=== PATIENT | female | born 2005 | race Caucasian/White ===

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

== ENCOUNTER → 2023-08-17 14:44 | Outpatient (CLI) | payer OTHER, MEDICAID, SELFPAY ==
--- NOTE | 2023-08-17 14:45 | DI.US.S_ITS ---
PROCEDURE: US PELVIC COMPLETE INDICATIONS: IUD TECHNIQUE: Real-time scanning was performed of the pelvic organs, with image documentation. Additional endovaginal scanning was necessary due to incomplete visualization of the adnexal and endometrial structures by transabdominal scanning. COMPARISON: [facility], US, US PELVIC COMPLETE, 03/02/2021, 14:48. FINDINGS: Uterus: Uterus is anteverted and normal in size at 6.8 x 3.1 x 4.4 cm. The myometrium is heterogeneous. The endometrium measures 4 millimeters mm combined thickness. Intrauterine device in appropriate position. There is a mid posterior subserosal fibroid measuring 7 millimeters. Ovaries: The right ovary measures 3.0 x 1.6 x 2.1 cm, with a calculated ovarian volume of 5.4 cc. The left ovary measures 3.3 x 1.9 x 2.4 cm, with a calculated ovarian volume of 8.0 cc. Greater than 12 follicles can be seen in each ovary. No adnexal masses are seen. Other: No pathologic free abdominal or pelvic fluid. IMPRESSION: 1. Intrauterine device in appropriate position. 2. Greater than 12 sub-5 mm follicular cysts bilaterally which can be associated with polycystic ovarian morphology. 3. Mid posterior subserosal fibroid measuring 7 millimeters. We strive to produce accurate, complete, and clear reports of imaging services. To assist us in improving patient care, this report was composed using standard report templates and voice recognition software. Therefore, it may contain abnormal punctuation, insertions and/or omissions. Occasional wrong-word or sound-alike substitutions may occur. Though we review the report and make efforts to correct it, we do recommend that the report be read carefully in proper context to recognize any text inaccuracies. Dictated by: Son Moore M.D. on 08/18/2023 at 9:13 Approved by: Son Moore M.D. on 08/18/2023 at 9:15
== END ==
PROVIDERS: Family Provider Family Medicine; PCP Family Medicine; Referring Provider Obstetrics & Gynecology; Visit Provider Obstetrics & Gynecology
DX: N92.0 Excessive and frequent menstruation with regular cycle (principal); D25.2 Subserosal leiomyoma of uterus; N83.02 Follicular cyst of left ovary; N83.01 Follicular cyst of right ovary; Z97.5 Presence of (intrauterine) contraceptive device
CPT/HCPCS: 76830; 76856

== ENCOUNTER → 2023-08-18 17:25 | Outpatient (CLI) | payer OTHER, MEDICAID, SELFPAY ==
[2023-08-18 18:00] LABS: Add Manual Diff / Slide Review NO; Basophils Absolute Auto 100 /uL (0-100); Eosinophils Absolute Auto 200 /uL (0-450); Eosinophils Percent Auto 2.2 % (2-4); Hemoglobin 13.7 g/dL (12.0-16.0); Lymphocytes Absolute Auto 3500 /uL (1100-4500); Lymphocytes Percent Auto 32.6 % (25-40); Mean Corpuscular HGB Conc 34.2 % (30-36); Mean Corpuscular Hemoglobin 29.6 PG (26-34); Mean Corpuscular Volume 86.5 fL (80-100); Monocytes Absolute Auto 600 /uL (0-900); Monocytes Percent Auto 5.8 % (3-14); Neutrophils Absolute Auto 6200 /uL (1500-7000); Neutrophils Percent Auto 58.4 % (50-75); Platelet Count 352 X10^3/uL (150-400); Red Blood Cell Count 4.62 X10^6/uL (4.0-5.2); Red Cell Distribution Width 12.9 % (11.6-14.8); White Blood Cell Count 10.6 X10^3/uL (4.5-11.0)
[2023-08-18 18:30] LABS: Free T4, Direct Thyroxine 0.94 ng/dL (0.78-2.19)
[2023-08-18 18:43] LABS: Thyroid Stimulating Hormone 1.18 uIU/mL (0.47-4.68)
== END ==
PROVIDERS: Family Provider Family Medicine; PCP Family Medicine; Referring Provider Obstetrics & Gynecology; Visit Provider Obstetrics & Gynecology
DX: N92.6 Irregular menstruation, unspecified (principal); R53.83 Other fatigue
CPT/HCPCS: 36415; 84439; 84443; 85025

== ENCOUNTER → 2024-02-09 07:12 | Outpatient (CLI) | payer OTHER, MEDICAID, SELFPAY ==
--- NOTE | 2024-02-09 07:13 | DI.US.S_ITS ---
PROCEDURE: US PELVIC COMPLETE INDICATIONS: Check IUD placement/Poss PCOS TECHNIQUE: Real-time scanning was performed of the pelvic organs, with image documentation. Additional endovaginal scanning was necessary due to incomplete visualization of the adnexal and endometrial structures by transabdominal scanning. COMPARISON: [facility], US, US PELVIC COMPLETE, 08/17/2023, 15:09. FINDINGS: Uterus: Uterus is anteverted and normal in size at 5.9 x 3.5 x 3.9 cm. The myometrium is homogeneous. The endometrium measures 3 mm combined thickness. An IUD is present within the uterine fundus where expected. Ovaries: The right ovary measures 3.0 x 1.6 x 2.3 cm, with a calculated ovarian volume of 3.4 cc. The left ovary measures 4.0 x 2.1 x 2.4 cm, with a calculated ovarian volume of 3.8 cc. The ovaries have a normal sonographic appearance. There are greater than 12 follicles in the bilateral ovaries. No adnexal masses are seen. Other: No pathologic free abdominal or pelvic fluid. IMPRESSION: 1. Findings meet the [place] definition of polycystic ovaries. In the absence of ovulatory dysfunction or clinically/biochemically diagnosed hyperandrogenism, findings are non specific and do not indicate the presence of polycystic ovarian syndrome. 2. IUD in expected location in uterine fundus. We strive to produce accurate, complete, and clear reports of imaging services. To assist us in improving patient care, this report was composed using standard report templates and voice recognition software. Therefore, it may contain abnormal punctuation, insertions and/or omissions. Occasional wrong-word or sound-alike substitutions may occur. Though we review the report and make efforts to correct it, we do recommend that the report be read carefully in proper context to recognize any text inaccuracies. Dictated by: Adia Alberts M.D. on 02/09/2024 at 8:13 Approved by: Adia Alberts M.D. on 02/09/2024 at 8:23
== END ==
LOC: US 07:13
PROVIDERS: Family Provider Family Medicine; PCP Family Medicine; Referring Provider Obstetrics & Gynecology; Visit Provider Obstetrics & Gynecology
DX: N92.6 Irregular menstruation, unspecified (principal); Z97.5 Presence of (intrauterine) contraceptive device
CPT/HCPCS: 76856

== ENCOUNTER → 2024-03-01 14:19 | Outpatient (CLI) | payer OTHER, MEDICAID, SELFPAY ==
[2024-03-01 15:40] LABS: Add Manual Diff / Slide Review NO; Basophils Absolute Auto 100 /uL (0-100); Basophils Percent Auto 0.8 % (0-2); Eosinophils Absolute Auto 100 /uL (0-450); Eosinophils Percent Auto 1.5 % (2-4); Hematocrit 36.2 % (36-46); Hemoglobin 12.6 g/dL (12.0-16.0); Lymphocytes Absolute Auto 3000 /uL (1100-4500); Lymphocytes Percent Auto 31.9 % (25-40); Mean Corpuscular HGB Conc 34.8 % (30-36); Mean Corpuscular Hemoglobin 30.2 PG (26-34); Mean Corpuscular Volume 86.8 fL (80-100); Monocytes Absolute Auto 800 /uL (0-900); Monocytes Percent Auto 7.9 % (3-14); Neutrophils Absolute Auto 5500 /uL (1500-7000); Neutrophils Percent Auto 57.9 % (50-75); Platelet Count 314 X10^3/uL (150-400); Red Blood Cell Count 4.17 X10^6/uL (4.0-5.2); White Blood Cell Count 9.5 X10^3/uL (4.5-11.0)
[2024-03-01 16:22] LABS: Iron 70 ug/dL (37-170)
[2024-03-01 16:26] LABS: Alanine Aminotransferase 20 IU/L (<35); Albumin 4.4 g/dL (3.5-5.0); Albumin Globulin Ratio 1.5 (1.0-2.8); Alkaline Phosphatase 68 U/L (38-126); Aspartate Aminotransferase 30 IU/L (14-36); BUN Creatinine Ratio 16.9 (6-22); Bilirubin Total 0.5 mg/dL (0.2-1.3); Blood Urea Nitrogen 11 mg/dL (7-17); Calcium 8.9 mg/dL (8.4-10.2); Carbon Dioxide 24 mmol/L (22-32); Chloride 107 mmol/L (98-107); Estimated Glomerular Filt Rate > 60 mL/min (>60); Glucose 86 mg/dL (70-100); HEMOLYSIS < 15 (0-50); Sodium 138 mmol/L (137-145); Total Protein 7.4 g/dL (6.3-8.2)
[2024-03-02 16:01] LABS: Hemoglobin A1C% w Est Avg Glu 5.2 % (4.0-6.0)
[2024-03-04 05:39] LABS: Insulin Level Total 13.6 uIU/mL (2.6-24.9)
[2024-03-07 09:12] LABS: Percent Free Testosterone 3.27 % (0.50-2.80); Testosterone Free 0.41 ng/dL (0.10-0.85); Testosterone Total 12.5 ng/dL (10.0-55.0)
== END ==
PROVIDERS: Family Provider Family Medicine; PCP Family Medicine; Referring Provider Family Medicine; Visit Provider Family Medicine
DX: E28.2 Polycystic ovarian syndrome (principal); R42 Dizziness and giddiness
CPT/HCPCS: 36415; 80053; 83036; 83525; 83540; 84402; 84403; 85025

== ENCOUNTER → 2024-05-04 15:09 | Outpatient (CLI) | payer OTHER, MEDICAID, SELFPAY | LOC: CAR 15:10 | PROVIDERS: Family Provider Family Medicine; PCP Family Medicine; Referring Provider Family Medicine; Visit Provider Family Medicine | DX: R42 Dizziness and giddiness (principal) | CPT/HCPCS: 93246 ==

== ENCOUNTER → 2024-07-12 18:33 | Outpatient (CLI) | payer OTHER, MEDICAID, SELFPAY | PROVIDERS: Family Provider Family Medicine; PCP Family Medicine; Visit Provider Student in an Organized Health Care Education/Training Program | DX: H66.92 Otitis media, unspecified, left ear (principal); J02.8 Acute pharyngitis due to other specified organisms | CPT/HCPCS: 87070; 87880 ==

== ENCOUNTER → 2024-07-24 18:37 | Outpatient (CLI) | payer OTHER, MEDICAID, SELFPAY | PROVIDERS: Family Provider Family Medicine; PCP Family Medicine; Visit Provider Nurse Practitioner Family | DX: J02.9 Acute pharyngitis, unspecified (principal) | CPT/HCPCS: 87070; 87880 ==

== ENCOUNTER → 2024-09-01 08:38 | Outpatient (CLI) | payer OTHER, SELFPAY ==
[2024-09-01 09:28] LABS: Influenza A - CEPHEID Flu A NEGATIVE (NEGATIVE); Influenza B - CEPHEID Flu B NEGATIVE (NEGATIVE); Respiratory Syncytial Virus Negative (Negative)
[2024-09-01 09:42] LABS: COVID-19 CEPHEID 4-PLEX PCR Negative (Negative)
== END ==
PROVIDERS: Family Provider Family Medicine; PCP Family Medicine; Referring Provider Nurse Practitioner Family; Visit Provider Nurse Practitioner Family
DX: R50.9 Fever, unspecified (principal); J02.9 Acute pharyngitis, unspecified
CPT/HCPCS: 87635; 87400; 87420; 0241U; 87070

== ENCOUNTER 2024-09-03 11:44 | Emergency (ER) | payer OTHER, SELFPAY ==
[2024-09-03] VITALS (12 sets, daily range): BP systolic 112–135; BP diastolic 66–80; PULSE 88–125; RESP 18–20; TEMP 36.9–37.7; O2SAT 97–99; BMI 36.9
--- NOTE | 2024-09-03 12:10 | DI.RAD.S_ITS ---
PROCEDURE: XR CHEST 2V INDICATIONS: fever, congested cough since 09 01 24 TECHNIQUE: 2 views of the chest were acquired. COMPARISON: [facility], CR, XR CHEST 2V, 12/18/2022, 12:42. FINDINGS: Surgical changes and devices: None. Lungs and pleura: Lungs are clear. No pleural effusions or pneumothorax. Mediastinum: Mediastinal contours are normal. Heart size is normal. Bones and chest wall: No suspicious bony abnormalities. Soft tissues appear unremarkable. IMPRESSION: No acute pulmonary process. Dictated by: Zayda Devries M.D. on 09/03/2024 at 13:12 Approved by: Zayda Devries M.D. on 09/03/2024 at 13:12
[2024-09-03 12:42] LABS: Add Manual Diff / Slide Review NO; Basophils Absolute Auto 100 /uL (0-100); Basophils Percent Auto 0.7 % (0-2); Eosinophils Absolute Auto 100 /uL (0-450); Eosinophils Percent Auto 0.6 % (2-4); Hematocrit 39.2 % (36-46); Hemoglobin 13.1 g/dL (12.0-16.0); Lymphocytes Absolute Auto 2000 /uL (1100-4500); Lymphocytes Percent Auto 17.2 % (25-40); Mean Corpuscular HGB Conc 33.3 % (30-36); Mean Corpuscular Hemoglobin 29.1 PG (26-34); Mean Corpuscular Volume 87.4 fL (80-100); Monocytes Absolute Auto 1400 /uL (0-900); Monocytes Percent Auto 11.4 % (3-14); Neutrophils Absolute Auto 8300 /uL (1500-7000); Neutrophils Percent Auto 70.1 % (50-75); Platelet Count 270 X10^3/uL (150-400); Red Blood Cell Count 4.49 X10^6/uL (4.0-5.2); Red Cell Distribution Width 13.4 % (11.6-14.8); White Blood Cell Count 11.9 X10^3/uL (4.5-11.0)
--- NOTE | 2024-09-03 12:50 | ED.GENADULT ---
HPI - General Adult General Chief complaint: Fever Stated complaint: fever 4 days not breaking Time Seen by Provider: 09/03/24 12:20 Source: patient Mode of arrival: Ambulatory History of Present Illness HPI narrative: [age] year old woman with fever to 104 for the last 4 days. On day 2 of symptoms she was seen at urgent care with COVID influenza and RSV swabs as well as rapid strep negative. She notes myalgias, mild frontal headache, sleeping for most of the previous 3 days which is very unusual for her, minimal cough, posterior and anterior cervical adenopathy causing neck pain without acute meningismus signs. She states she had a similar episode about 2 months ago with a high fever that was treated with 2 courses of antibiotics but no actual bacterial diagnosis was fully identified. She has not been having vomiting or diarrhea but notes some mild nausea. Has been able to keep down small amounts of fluids and solids. No one else at home is sick Related Data Home Medications Medication Instructions Recorded Confirmed multivitamin 1 tab PO DAILY 07/03/21 09/01/24 Previous Rx's Medication Instructions Recorded cetirizine 10 mg tablet (Allergy 10 mg PO BEDTIME PRN allergy 12/17/22 Relief (cetirizine)) symptoms #30 tabs norethindrone 0.5 mg-ethinyl 1 tab PO DAILY #84 tabs 12/17/22 estradiol 35 mcg tablet (Necon) metformin 500 mg tablet 1,000 mg (2 x 500 mg) PO BID #180 04/17/24 tabs Glucose Meter #1 ea 05/09/24 Glucose Test Strips #100 strips 05/09/24 lancets #100 ea 05/09/24 benzonatate 200 mg capsule 200 mg PO BID PRN cough #28 caps 07/24/24 Allergies Allergy/AdvReac Type Severity Reaction Status Date / Time No Known Drug Allergies Allergy Verified 09/01/24 08:36 Review of Systems Review of Systems Narrative: Pertinent positive and negative findings as per HPI Patient History Medical History Attention deficit hyperactivity disorder (ADHD), predominantly 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) Gastroesophageal reflux disease Anxiety Family History Grandmother Thyroid disorder Mother Panic attacks Methamphetamine abuse Social History household members: family Smoking Status: Current some day smoker alcohol intake: never Smoking Status: Current some day smoker tobacco type: vaping alcohol intake frequency: 0-2 drinks per day Exam Initial Vital Signs Initial Vital Signs: Vital Signs Temperature 100 F H 09/03/24 11:52 Pulse Rate 125 H 09/03/24 11:52 Respiratory Rate 18 09/03/24 11:52 Blood Pressure 115/78 09/03/24 11:52 Pulse Oximetry 97 09/03/24 11:52 Oxygen Delivery Method Room Air 09/03/24 11:52 General: Healthy appearing, in no acute distress. Able to give a complete and coherent history. Well-nourished well-developed HEENT: Moist mucous membranes, normal sclera with reactive pupils, throat is mildly erythematous. Right tonsil has some mild exudate slightly more full than the left (patient complains of most pain on the left) Neck: Notable anterior and posterior cervical adenopathy tender to palpation. No single node is particularly enlarged Respiratory: Lungs are clear to auscultation, no wheezing no rales no rhonchi. Full and symmetrical air movement Cardiac: Tachycardic but otherwise Regular rate and rhythm no murmurs no bruits Abdomen: Soft, nontender, good bowel tones, no flank pain Skin: Warm and dry, no rashes Neurologic: Grossly neurologically intact with no obvious asymmetries or abnormalities Extremities: No trauma, well perfused Psych: Cooperative, appropriate insight and affect Course Orders Ordered: ED Orders 09/03/24 12:10 XR chest 2V Stat 09/03/24 12:30 Complete Blood Count AUTO DIFF Stat Comprehensive Metabolic Panel Stat Lactate (Lactic Acid) Stat Magnesium Stat 09/03/24 12:58 Throat Culture Stat 09/03/24 13:38 Strep Grp A by PCR Rapid Stat Discontinued Medications Sodium Chloride (Normal Saline 0.9%) 1,000 mls @ 1,000 mls/hr IV BOLUS ONE Stop: 09/03/24 13:48 Last Infusion: 09/03/24 14:27 Dose: Infused Documented By: Admin: 09/03/24 13:05 Dose: 1,000 mls/hr Documented By: ROSLYN Ketorolac Tromethamine (Ketorolac 30 Mg/Ml Vial) 15 mg IV NOW ONE Stop: 09/03/24 12:50 Last Admin: 09/03/24 13:04 Dose: 15 mg Documented By: ROSLYN Vital Signs Vital signs: Vital Signs - 8 hr 09/03/24 11:52 09/03/24 12:53 09/03/24 13:04 Temperature 100 F H 98.6 F 98.6 F Pulse Rate 125 H 113 H Respiratory Rate 18 18 Blood Pressure 115/78 135/68 Pulse Oximetry 97 99 Oxygen Delivery Method Room Air Room Air 09/03/24 13:09 09/03/24 13:11 09/03/24 13:30 Temperature Pulse Rate 112 H 112 H 105 H Respiratory Rate 20 Blood Pressure 130/79 Pulse Oximetry 98 99 99 Oxygen Delivery Method Room Air 09/03/24 13:30 09/03/24 14:00 09/03/24 14:00 Temperature Pulse Rate 107 H Respiratory Rate Blood Pressure 126/66 125/73 Pulse Oximetry 97 Oxygen Delivery Method 09/03/24 14:24 09/03/24 14:24 09/03/24 14:30 Temperature 98.5 F Pulse Rate 105 H Respiratory Rate Blood Pressure 122/76 123/73 Pulse Oximetry 97 Oxygen Delivery Method 09/03/24 14:30 09/03/24 15:00 09/03/24 15:00 Temperature Pulse Rate 99 H 94 H Respiratory Rate Blood Pressure 112/66 Pulse Oximetry 98 97 Oxygen Delivery Method 09/03/24 15:30 09/03/24 15:30 Temperature Pulse Rate 99 H Respiratory Rate Blood Pressure 118/76 Pulse Oximetry 98 Oxygen Delivery Method Medical Decision Making Lab Data 09/03/24 12:30 09/03/24 12:30 Labs: Lab Results 09/03/24 09/03/24 Range/Units 12:30 13:38 WBC 11.9 H (4.5-11.0) X10^3/uL RBC 4.49 (4.0-5.2) X10^6/uL Hgb 13.1 (12.0-16.0) g/dL Hct 39.2 (36-46) % MCV 87.4 (80-100) fL MCH 29.1 (26-34) PG MCHC 33.3 (30-36) % RDW 13.4 (11.6-14.8) % Plt Count 270 (150-400) X10^3/uL Neut % (Auto) 70.1 (50-75) % Lymph % (Auto) 17.2 L (25-40) % [place] % (Auto) 11.4 (3-14) % Eos % (Auto) 0.6 L (2-4) % Baso % (Auto) 0.7 (0-2) % Neut # (Auto) 8300 H (2291-1165) /uL Lymph # (Auto) 2000 (9335-0621) /uL [place] # (Auto) 1400 H (0-900) /uL Eos # (Auto) 100 (0-450) /uL Baso # (Auto) 100 (0-100) /uL Sodium 138 (137-145) mmol/L Potassium 4.1 (3.4-5.1) mmol/L Chloride 102 (98-107) mmol/L Carbon Dioxide 27 (22-32) mmol/L BUN 9 (7-17) mg/dL Creatinine 0.59 (0.52-1.04) mg/dL Estimated GFR > 60 (>60) mL/min BUN/Creatinine Ratio 15.3 (6-22) Glucose 109 H (70-100) mg/dL Lactate 1.6 (0.7-2.1) mmol/L Calcium 9.1 (8.4-10.2) mg/dL Magnesium 2.0 (1.6-2.3) mg/dL Total Bilirubin 0.6 (0.2-1.3) mg/dL AST 46 H (14-36) IU/L ALT 36 H (<35) IU/L Alkaline Phosphatase 72 (38-126) U/L Total Protein 8.2 (6.3-8.2) g/dL Albumin 4.7 (3.5-5.0) g/dL Globulin 3.5 (1.7-4.1) g/dL Albumin/Globulin Ratio 1.3 (1.0-2.8) Group A Strep (PCR) Negative (Negative) Point of Care Testing Test Results Negative Urine Dip Bedside Urine Glucose Negative Bedside Urine Bilirubin - Negative Bedside Urine Ketone - Negative Urine Specific [place] 1.010 Bedside Urine Occult Blood - Negative Bedside Urine pH 7.0 Bedside Urine Protein - Negative Bedside Urine Urobilinogen - Negative Bedside Urine Nitrite - Negative Bedside Urine Leukocytes - Negative Esterase Point of care testing: Point of Care Testing Test Results Negative Urine Dip Bedside Urine Glucose Negative Bedside Urine Bilirubin - Negative Bedside Urine Ketone - Negative Urine Specific [place] 1.010 Bedside Urine Occult Blood - Negative Bedside Urine pH 7.0 Bedside Urine Protein - Negative Bedside Urine Urobilinogen - Negative Bedside Urine Nitrite - Negative Bedside Urine Leukocytes - Negative Esterase MDM Narrative Medical decision making narrative: CC: Fever to 104 Complicating co-morbidities: Symptoms present for 4 days, similar episode 2 months ago Data collected from: patient Medical records reviewed: Throat cultures done on July 12, 2012 and September 01 are all negative Differential considered: Viral syndrome, bacterial pharyngitis, pneumonia, mononucleosis, doubt meningitis Exam documented above, pertinent findings include: Cervical adenopathy, lungs are clear, no meningismus. Slightly erythematous pharynx Lab Test results independently reviewed as above. Pertinent findings: Mild leukocytosis at 11.9 without significant left shift Chemistries are essentially unremarkable. Minimally elevated AST and ALT at 46 and 36 respectively Lactic acid is not elevated Tests for COVID, influenza, RSV, group step are all negative Imaging studies independently reviewed: Chest x-ray does not show acute infiltrate Treatments: Fluids, Toradol, iv dexamethasone Discussion: 19-year-old woman with 4 days of fever to 104 and general body aches. Sore throat. Influence RSV and COVID are negative no evidence of strep throat is not appear to be mono no pneumonia no urinary tract infection. At this time most likely explanation remains viral etiology. This is discussed with the patient. The Toradol did help with the overall myalgias and headache but is now beginning to wear off. We will give her a dose of IV dexamethasone to help with the pharyngitis pain. Recommended not returning to work until at least the and her fever has essentially resolved. If she is worsening symptoms she needs to return to the ER. There was no indication for hospitalization or additional imaging at this time she is safe for discharge Discharge Plan Departure Patient Disposition: Home Clinical Impression: Acute febrile illness Instructions: DI for Fever (Symptom) -- Adult Activity Restrictions/Additional Instructions: Thank you For coming in today Your workup was actually quite reassuring. There is no evidence of influenza, COVID, respiratory syncytial virus, strep throat. A throat culture has been done so if bacteria do grow we will call you. Prescriptions: No Action Necon 0.5/35 (28) 0.5-35 mg-mcg tablet 1 tab PO DAILY Qty: 84 3RF cetirizine [Allergy Relief (cetirizine)] 10 mg tablet 10 mg PO BEDTIME PRN (Reason: allergy symptoms) Qty: 30 3RF (DME) Glucose Test Strips See Rx Instructions .ROUTE .MEDSUPPLY Qty: 100 0RF Rx Instructions: to test glucose daily As directed as needed for hypoglycemic episodes benzonatate 200 mg capsule 200 mg PO BID PRN (Reason: cough) Qty: 28 0RF metformin 500 mg tablet 1,000 mg PO BID Qty: 180 0RF (DME) lancets Misc See Rx Instructions .MEDSUPPLY Qty: 100 0RF Rx Instructions: to test blood glucose daily As directed as needed (DME) Glucose Meter See Rx Instructions .ROUTE .MEDSUPPLY Qty: 1 0RF Rx Instructions: to test blood glucose daily As directed as needed multivitamin Tablet 1 tab PO DAILY Referrals: Grace Lyle MD [Primary Care Provider] - Stand Alone Forms: Patient Portal/API/Survey
[2024-09-03 13:03] LABS: Alanine Aminotransferase 36 IU/L (<35); Albumin 4.7 g/dL (3.5-5.0); Albumin Globulin Ratio 1.3 (1.0-2.8); Alkaline Phosphatase 72 U/L (38-126); Aspartate Aminotransferase 46 IU/L (14-36); BUN Creatinine Ratio 15.3 (6-22); Bilirubin Total 0.6 mg/dL (0.2-1.3); Blood Urea Nitrogen 9 mg/dL (7-17); Calcium 9.1 mg/dL (8.4-10.2); Carbon Dioxide 27 mmol/L (22-32); Chloride 102 mmol/L (98-107); Estimated Glomerular Filt Rate > 60 mL/min (>60); Globulin 3.5 g/dL (1.7-4.1); Glucose 109 mg/dL (70-100); HEMOLYSIS < 15 (0-50); Potassium 4.1 mmol/L (3.4-5.1); Sodium 138 mmol/L (137-145); Total Protein 8.2 g/dL (6.3-8.2)
[2024-09-03 13:04] LABS: Lactate (Lactic Acid) 1.6 mmol/L (0.7-2.1)
[2024-09-03] MEDS: KETOROLAC 30 MG/ML VIAL 15 MG IV (13:04)
[2024-09-03] MEDS: SODIUM CHLORIDE 0.9% 1,000 ML 1000 ML IV (13:05)
[2024-09-03 14:05] LABS: Strep Grp A by PCR Rapid Negative (Negative)
--- NOTE | 2024-09-03 14:29 | PC.NURSE ---
patient reports significant improvement in throat pain after the Ketorlac. Does continue to have manageable headache
--- NOTE | 2024-09-03 15:56 | PC.NURSE ---
patient ambulated to [facility]. report headache is increasing. i would take excedrine migraine if I were at home
[2024-09-03] MEDS: DEXAMETHASONE 10 MG/ML VIAL PO (17:16)
== END 2024-09-03 17:18 | disposition home or self-care (01) ==
PROVIDERS: Emergency Provider Emergency Medicine; Family Provider Family Medicine; PCP Family Medicine
DX: R50.9 Fever, unspecified (principal)
CPT/HCPCS: 36415; 71046; 80053; 81003; 81025; 83605; 83735; 85025; 87070; 87651; 96361; 96374; 99284; J1100; J1885

== ENCOUNTER → 2024-11-09 15:20 | Outpatient (CLI) | payer MEDICAID, SELFPAY ==
[2024-11-09 16:54] LABS: Vitamin D 25 Hydroxy (D3) 26.8 ng/mL (30.0-100.0)
[2024-11-09 17:25] LABS: Vitamin B12 533 pg/mL (239-931)
== END ==
LOC: LAB 15:21
PROVIDERS: Family Provider Family Medicine; PCP Family Medicine; Referring Provider Family Medicine; Visit Provider Family Medicine
DX: E55.9 Vitamin D deficiency, unspecified (principal); R53.83 Other fatigue
CPT/HCPCS: 36415; 82306; 82607

== ENCOUNTER 2024-12-17 18:53 | Emergency (ER) | payer OTHER, MEDICAID, SELFPAY ==
[2024-12-17 19:10] VITALS: BP 137/95; PULSE 97; RESP 18; TEMP 36.7; O2SAT 99; BMI 34.9
--- NOTE | 2024-12-17 19:18 | DI.RAD.S_ITS ---
PROCEDURE: XR HIP W PEL IF DONE DEN MIN 4V INDICATIONS: bilateral hip pain TECHNIQUE: AP pelvis with lateral view(s) of the bilateral hip(s). COMPARISON: None. FINDINGS: Bones: No fractures or dislocations. Pelvic ring appears intact. No suspicious bony lesions. Soft tissues: The visualized bowel gas pattern is normal. No suspicious soft tissue calcifications. Intrauterine device projecting over the pelvis. IMPRESSION: No acute osseous abnormality. If pain persists with conservative management, consider repeat x-ray in 10-14 days or cross-sectional imaging. Dictated by: Son Moore M.D. on 12/17/2024 at 19:46 Approved by: Son Moore M.D. on 12/17/2024 at 19:47
--- NOTE | 2024-12-17 19:18 | DI.RAD.S_ITS ---
PROCEDURE: XR LUMBAR SPINE 2-3V INDICATIONS: low back/pelvis pain TECHNIQUE: 3 views of the lumbar spine were acquired. COMPARISON: None. FINDINGS: Bones: 5 [id number] vertebrae are present. Straightening of the normal lumbar lordosis. No vertebral body compression fractures. Mild disc height loss at L5-S1. No suspicious bony lesions. Soft tissues: Overlying bowel gas pattern is normal. No suspicious soft tissue calcifications. Intrauterine device projecting over the pelvis. IMPRESSION: 1. Mild disc height loss at L5-S1. Otherwise, no significant degenerative changes. No acute osseous abnormalities. 2. Loss of lordosis which could be related to muscle spasm, rigidity or simply positional. Dictated by: Son Moore M.D. on 12/17/2024 at 19:50 Approved by: Son Moore M.D. on 12/17/2024 at 19:51
--- NOTE | 2024-12-17 23:26 | ED.BACK ---
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 Also has some discomfort to both hips. No change in footwear. No fevers or chills. No abdominal discomfort. No diarrhea nausea or vomiting. No fevers or chills. No painful or frequent urination. Related Data Home Medications Medication Instructions Recorded Confirmed multivitamin 1 tab PO DAILY 07/03/21 11/20/24 Previous Rx's Medication Instructions Recorded cetirizine 10 mg tablet (Allergy 10 mg PO BEDTIME PRN allergy 12/17/22 Relief (cetirizine)) symptoms #30 tabs metformin 500 mg tablet 1,000 mg (2 x 500 mg) PO BID #180 04/17/24 tabs Glucose Meter #1 ea 05/09/24 Glucose Test Strips #100 strips 05/09/24 lancets #100 ea 05/09/24 promethazine 12.5 mg tablet 12.5 mg PO QID PRN nausea and 11/20/24 vomiting #30 tabs sumatriptan succinate 25 mg tablet 25 mg PO .COMPLEX #10 tabs 11/20/24 methocarbamol 500 mg tablet 500 mg PO TID 7 days #21 tabs 12/18/24 Allergies Allergy/AdvReac Type Severity Reaction Status Date / Time No Known Drug Allergies Allergy Verified 11/29/24 17:09 Patient History Medical History Attention deficit hyperactivity disorder (ADHD), predominantly 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) Gastroesophageal reflux disease Anxiety Family History Grandmother Thyroid disorder Mother Panic attacks Methamphetamine abuse Social History household members: family Smoking Status: Never smoker alcohol intake: never Smoking Status: Never smoker tobacco type: vaping alcohol intake frequency: 0-2 drinks per day Exam Narrative Exam Narrative: GENERAL: Well-developed patient, in mild distress. Sitting position in adjacent chair position of comfort initially for evaluation initial exam. HEAD: Atraumatic. Normocephalic. EYES: Pupils equal round and reactive. Extraocular motions intact. No scleral icterus. No injection or drainage. ENT: Nose without bleeding, purulent drainage. Throat without erythema, tonsillar hypertrophy or exudate. Airway patent. NECK: Trachea midline. Non tender CARDIOVASCULAR: Regular rate and rhythm without murmurs, gallops, or rubs. RESPIRATORY: Clear to auscultation. Breath sounds equal bilaterally. No wheezes, rales, or rhonchi. GASTROINTESTINAL: Abdomen soft, non-tender, nondistended. EXTREMITIES: No edema or joint tenderness. BACK: Nontender without deformity or crepitance. No flank tenderness. NEURO: AOx3. Motor functions grossly nonfocal SKIN: No rash or erythema of visible areas Initial Vital Signs Initial Vital Signs: Vital Signs Temperature 98.1 F 12/17/24 19:10 Pulse Rate 97 H 12/17/24 19:10 Respiratory Rate 18 12/17/24 19:10 Blood Pressure 137/95 H 12/17/24 19:10 Pulse Oximetry 99 12/17/24 19:10 Oxygen Delivery Method Room Air 12/17/24 19:10 Course Orders Ordered: ED Orders 12/18/24 01:37 CT abdomen pelvis w con Stat 12/18/24 02:18 CBC Auto Diff [Complete Blood Count AUTO DIFF] Stat CMP [Comprehensive Metabolic Panel] Stat Lipase Stat Discontinued Medications Hydromorphone HCl (Hydromorphone 1 Mg Inj) 1 mg IM NOW ONE Stop: 12/18/24 01:40 Last Admin: 12/18/24 02:00 Dose: Not Given Documented By: KACIE Hydromorphone HCl (Hydromorphone 1 Mg Inj) 1 mg IV NOW ONE Stop: 12/18/24 02:00 Last Admin: 12/18/24 02:18 Dose: 1 mg Documented By: KACIE Ketorolac Tromethamine (Ketorolac 30 Mg/Ml Vial) 30 mg IM NOW ONE Stop: 12/17/24 23:28 Last Admin: 12/17/24 23:47 Dose: 30 mg Documented By: KACIE Methocarbamol (Methocarbamol 500 Mg Tablet) 500 mg PO NOW ONE Stop: 12/17/24 23:28 Last Admin: 12/17/24 23:47 Dose: 500 mg Documented By: LS Vital Signs Vital signs: Vital Signs - 8 hr 12/18/24 02:14 12/18/24 02:15 12/18/24 02:15 Pulse Rate 84 90 Respiratory Rate 20 20 Blood Pressure 134/60 Pulse Oximetry 100 97 Oxygen Delivery Method Room Air Room Air 12/18/24 02:30 12/18/24 02:30 12/18/24 03:00 Pulse Rate 88 82 Respiratory Rate 19 16 Blood Pressure 121/60 Pulse Oximetry 99 99 Oxygen Delivery Method Room Air Room Air MDM - Back Pain/Injury Lab Data Attestation: I reviewed the patient's lab results. Lab results narrative: White blood cell count 9800 not elevated. Hemoglobin, platelets, basic metabolic panel unremarkable. Liver functions lipase normal. 12/18/24 02:18 12/18/24 02:18 Labs: Lab Results 12/18/24 Range/Units 02:18 WBC 9.8 (4.5-11.0) X10^3/uL RBC 4.38 (4.0-5.2) X10^6/uL Hgb 13.2 (12.0-16.0) g/dL Hct 38.0 (36-46) % MCV 86.8 (80-100) fL MCH 30.0 (26-34) PG MCHC 34.6 (30-36) % RDW 13.2 (11.6-14.8) % Plt Count 327 (150-400) X10^3/uL Neut % (Auto) 51.4 (50-75) % Lymph % (Auto) 37.4 (25-40) % [place] % (Auto) 8.2 (3-14) % Eos % (Auto) 2.0 (2-4) % Baso % (Auto) 1.0 (0-2) % Neut # (Auto) 5000 (3584-0227) /uL Lymph # (Auto) 3700 (4687-3718) /uL [place] # (Auto) 800 (0-900) /uL Eos # (Auto) 200 (0-450) /uL Baso # (Auto) 100 (0-100) /uL Sodium 139 (137-145) mmol/L Potassium 3.8 (3.4-5.1) mmol/L Chloride 105 (98-107) mmol/L Carbon Dioxide 23 (22-32) mmol/L BUN 13 (7-17) mg/dL Creatinine 0.62 (0.52-1.04) mg/dL Estimated GFR > 60 (>60) mL/min BUN/Creatinine Ratio 21.0 (6-22) Glucose 123 H (70-99) mg/dL Calcium 9.0 (8.4-10.2) mg/dL Total Bilirubin 0.6 (0.2-1.3) mg/dL AST 26 (14-36) IU/L ALT 18 (<35) IU/L Alkaline Phosphatase 78 (38-126) U/L Total Protein 7.9 (6.3-8.2) g/dL Albumin 4.8 (3.5-5.0) g/dL Globulin 3.1 (1.7-4.1) g/dL Albumin/Globulin Ratio 1.5 (1.0-2.8) Lipase 124 (23-300) U/L Imaging Data Extremity x-ray #1: Radiologist's Impression: [address] [address] XRay Report Signed Patient: Kelley Simms MR#: [id number] : 2005 Acct:[id number] Age/Sex: 19 / F Date of Service: 12/17/24 Loc: ED Accession Number: [id number] Procedure: XR hip w pel if done DEN 3to4V Ordering Provider: Cuong Thornton MD PROCEDURE: XR HIP W PEL IF DONE DEN MIN 4V INDICATIONS: bilateral hip pain TECHNIQUE: AP pelvis with lateral view(s) of the bilateral hip(s). COMPARISON: None. FINDINGS: Bones: No fractures or dislocations. Pelvic ring appears intact. No suspicious bony lesions. Soft tissues: The visualized bowel gas pattern is normal. No suspicious soft tissue calcifications. Intrauterine device projecting over the pelvis. IMPRESSION: No acute osseous abnormality. If pain persists with conservative management, consider repeat x-ray in 10-14 days or cross-sectional imaging. Dictated by: Son Moore M.D. on 12/17/2024 at 19:46 Approved by: Son Moore M.D. on 12/17/2024 at 19:47 X-ray series lumbar spine: Radiologist's Impression: Close Hip X-Ray (Signed) Son Moore - 12/17/24 Lumbar Spine X-Ray (Signed) Son Moore - 12/17/24 Launch?[address] [address] XRay Report Signed Patient: Kelley Simms MR#: [id number] : 2005 Acct:[id number] Age/Sex: 19 / F Date of Service: 12/17/24 Loc: ED Accession Number: [id number] Procedure: XR lumbar spine 2-3V Ordering Provider: Cuong Thornton MD PROCEDURE: XR LUMBAR SPINE 2-3V INDICATIONS: low back/pelvis pain TECHNIQUE: 3 views of the lumbar spine were acquired. COMPARISON: None. FINDINGS: Bones: 5 [id number] vertebrae are present. Straightening of the normal lumbar lordosis. No vertebral body compression fractures. Mild disc height loss at L5-S1. No suspicious bony lesions. Soft tissues: Overlying bowel gas pattern is normal. No suspicious soft tissue calcifications. Intrauterine device projecting over the pelvis. IMPRESSION: 1. Mild disc height loss at L5-S1. Otherwise, no significant degenerative changes. No acute osseous abnormalities. 2. Loss of lordosis which could be related to muscle spasm, rigidity or simply positional. Dictated by: Son Moore M.D. on 12/17/2024 at 19:50 Approved by: Son Moore M.D. on 12/17/2024 at 19:51 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 No fevers or chills. No anterior abdominal discomfort, prefers leaning over position of comfort that relieves her low back pain. Screening x-ray lumbar spine ordered by nursing was unremarkable. We discussed advanced imaging, she would like to hold off for now. Urinalysis negative for or obvious infection. Trial of IM Toradol and oral Robaxin. Symptoms not better. We will send labs. Screening labs unremarkable. CT abdomen and pelvis ordered. CT abdomen and pelvis. Impressions: ?No evidence of colitis diverticulitis bowel obstruction obstructive uropathy or acute appendicitis. See tele radiology report. CT results relayed to patient. Follow up as an outpatient. Discharged home. Discharge Plan Departure Patient Disposition: Home Clinical Impression: Back pain, Hip pain Activity Restrictions/Additional Instructions: Back pain and hip pain. Initial screening ordered by nursing were unremarkable. Toradol and muscle relaxant given, no significant improvement in symptoms. Labs were therefore sent and also were unremarkable. CT abdomen and pelvis imaging showed no bony changes, no visceral changes to explain symptoms. No mention of any hip pathology either. Unclear cause of your symptoms, might be low musculoskeletal in nature. Trial of [id number] acetaminophen. Trial of muscle relaxant Robaxin/methocarbamol. Prescription sent to your pharmacy. Recheck if your regular doctor if not improving in the next couple of days. Prescriptions: New methocarbamol 500 mg tablet 500 mg PO TID 7 Days Qty: 21 0RF No Action cetirizine [Allergy Relief (cetirizine)] 10 mg tablet 10 mg PO BEDTIME PRN (Reason: allergy symptoms) Qty: 30 3RF sumatriptan succinate 25 mg tablet 25 mg PO .COMPLEX Qty: 10 2RF Rx Instructions: take one tab, can repeat in 2hrs if needed. Max 200mg/24hrs promethazine 12.5 mg tablet 12.5 mg PO QID PRN (Reason: nausea and vomiting) Qty: 30 2RF (DME) Glucose Test Strips See Rx Instructions .ROUTE .MEDSUPPLY Qty: 100 0RF Rx Instructions: to test glucose daily As directed as needed for hypoglycemic episodes metformin 500 mg tablet 1,000 mg PO BID Qty: 180 0RF (DME) lancets Misc See Rx Instructions .MEDSUPPLY Qty: 100 0RF Rx Instructions: to test blood glucose daily As directed as needed (DME) Glucose Meter See Rx Instructions .ROUTE .MEDSUPPLY Qty: 1 0RF Rx Instructions: to test blood glucose daily As directed as needed multivitamin Tablet 1 tab PO DAILY Referrals: Grace Lyle MD [Primary Care Provider] - Stand Alone Forms: Patient Portal/API/Survey, Work Release Note
[2024-12-17] MEDS: KETOROLAC 30 MG/ML VIAL IM (23:47)
[2024-12-17] MEDS: methocarbamoL 500 MG TABLET PO (23:47)
--- NOTE | 2024-12-18 01:22 | PC.NURSE ---
[employer] note: Attempted to ambulate the patient. Patient walked hunched over unable to walk more than a couple steps outside the room before she said her back felt like it was locking up. Patient couldn't walk any further and needed help to get into a wheelchair to get back to her room.
--- NOTE | 2024-12-18 01:37 | DI.CT.S_ITS ---
PROCEDURE: CT ABDOMEN PELVIS W CON INDICATIONS: pelvic/back pain TECHNIQUE: After the administration of intravenous contrast, axial sections acquired from the lung bases to the pubic symphysis. Coronal and sagittal reformats were performed. For radiation dose reduction, the following was used: automated exposure control, adjustment of mA and/or kV according to patient size. COMPARISON: None. FINDINGS: Image quality: Diagnostic. Lower Chest: No significant findings. ABDOMEN: Liver: No solid mass. Gallbladder: No radiopaque gallstones or wall thickening. Biliary ducts: No biliary dilation. Pancreas: No ductal dilation. Spleen: Size is within normal limits. Adrenal Glands: No adrenal nodules. Kidneys and Ureters: No hydronephrosis. No solid mass. No complex renal cystic lesion which requires follow up. Stomach and Bowel: Normal colonic caliber, without significant wall thickening. Normal appendix. Peritoneum: No abnormal intraperitoneal fluid. No free air. Ventral Wall: No significant ventral hernia. Abdominal Nodes: No retroperitoneal or mesenteric adenopathy by size criteria. Vessels: Aorta and inferior vena cava are normal in size. PELVIS: Pelvic Organs: Intrauterine device in place. Bladder: No bladder wall thickening, accounting for underdistention. Pelvic Nodes: No enlarged lymph nodes. Miscellaneous: No inguinal hernias are seen. Bones: No aggressive osseous abnormality. IMPRESSION: No acute findings within the abdomen or pelvis. Findings are concordant with preliminary interpretation provided by [facility]. Dictated by: Son Moore M.D. on 12/18/2024 at 8:03 Approved by: Son Moore M.D. on 12/18/2024 at 8:07
[2024-12-18 02:14] VITALS: PULSE 84; RESP 20; O2SAT 100
[2024-12-18 02:15] VITALS: BP 134/60; PULSE 90; RESP 20; O2SAT 97
[2024-12-18] MEDS: HYDROMORPHONE 1 MG INJ IV (02:18)
[2024-12-18 02:27] LABS: Add Manual Diff / Slide Review NO; Basophils Absolute Auto 100 /uL (0-100); Eosinophils Absolute Auto 200 /uL (0-450); Hemoglobin 13.2 g/dL (12.0-16.0); Lymphocytes Absolute Auto 3700 /uL (1100-4500); Lymphocytes Percent Auto 37.4 % (25-40); Mean Corpuscular HGB Conc 34.6 % (30-36); Mean Corpuscular Volume 86.8 fL (80-100); Monocytes Absolute Auto 800 /uL (0-900); Monocytes Percent Auto 8.2 % (3-14); Neutrophils Absolute Auto 5000 /uL (1500-7000); Neutrophils Percent Auto 51.4 % (50-75); Platelet Count 327 X10^3/uL (150-400); Red Blood Cell Count 4.38 X10^6/uL (4.0-5.2); Red Cell Distribution Width 13.2 % (11.6-14.8); White Blood Cell Count 9.8 X10^3/uL (4.5-11.0)
[2024-12-18 02:30] VITALS: BP 121/60; PULSE 88; RESP 19; O2SAT 99
[2024-12-18 02:38] LABS: Lipase 124 U/L (23-300)
[2024-12-18 02:40] LABS: Alanine Aminotransferase 18 IU/L (<35); Albumin 4.8 g/dL (3.5-5.0); Albumin Globulin Ratio 1.5 (1.0-2.8); Alkaline Phosphatase 78 U/L (38-126); Aspartate Aminotransferase 26 IU/L (14-36); Bilirubin Total 0.6 mg/dL (0.2-1.3); Blood Urea Nitrogen 13 mg/dL (7-17); Carbon Dioxide 23 mmol/L (22-32); Chloride 105 mmol/L (98-107); Estimated Glomerular Filt Rate > 60 mL/min (>60); Globulin 3.1 g/dL (1.7-4.1); Glucose 123 mg/dL (70-99); HEMOLYSIS < 15 (0-50); Potassium 3.8 mmol/L (3.4-5.1); Sodium 139 mmol/L (137-145); Total Protein 7.9 g/dL (6.3-8.2)
[2024-12-18 03:00] VITALS: PULSE 82; RESP 16; O2SAT 99
--- NOTE | 2024-12-18 03:20 | PC.NURSE ---
Pt ambulates with some difficutly without assistance to restroom. States comfortable for discharge.
== END 2024-12-18 03:43 | disposition home or self-care (01) ==
PROVIDERS: Emergency Provider Emergency Medicine; Family Provider Family Medicine; PCP Family Medicine
DX: M54.50 Low back pain, unspecified (principal); M25.552 Pain in left hip; M25.551 Pain in right hip; X50.9XXA Other and unspecified overexertion or strenuous movements or postures, initial encounter; X50.3XXA Overexertion from repetitive movements, initial encounter
CPT/HCPCS: 36415; 72100; 73522; 74177; 80053; 83690; 85025; 96372; 96374; 99284; J1171; J1885; Q9967

== ENCOUNTER → 2024-12-27 15:06 | Outpatient (CLI) | payer OTHER, SELFPAY ==
[2024-12-27 16:01] LABS: Influenza A - CEPHEID Flu A NEGATIVE (NEGATIVE); Influenza B - CEPHEID Flu B NEGATIVE (NEGATIVE); Respiratory Syncytial Virus Negative (Negative)
[2024-12-27 16:11] LABS: COVID-19 CEPHEID 4-PLEX PCR Negative (Negative)
== END ==
LOC: LAB 15:06
PROVIDERS: Family Provider Family Medicine; PCP Family Medicine; Visit Provider Chiropractor
DX: R05.1 Acute cough (principal)
CPT/HCPCS: 87635; 87400; 87420; 0241U

== ENCOUNTER 2025-01-30 12:29 | Emergency (ER) | payer OTHER, SELFPAY ==
[2025-01-30 12:37] VITALS: BP 121/66; PULSE 109; RESP 16; TEMP 36.4; O2SAT 97; BMI 38.3
--- NOTE | 2025-01-30 12:52 | ED.BACK ---
HPI - Back Pain/Injury <Lashay Jameson PA-C - Last Filed: 01/30/25 15:10> General Chief Complaint: Back Pain/Injury Stated Complaint: sent by parul carbone possible kidney stones Time Seen by Provider: 01/30/25 12:43 History of Present Illness HPI Narrative: 19-year-old female with past medical history migraines, PCOS, anxiety presents to the ED with 2 days of left-sided flank pain. Patient went to the chiropractor yesterday assuming a musculoskeletal etiology. Patient states that she did not feel any better after the manipulation. Patient states that this morning she had sudden onset left flank pain again along with nausea, vomiting, chills. No fever, chest pain, shortness of breath, abdominal pain, lightheadedness, dizziness, syncope. No urinary symptoms. Related Data Home Medications ?Medication ?Instructions ?Recorded ?Confirmed multivitamin 1 tab PO DAILY 07/03/21 01/31/25 methocarbamol 500 mg tablet 500 mg PO 3XD 12/27/24 01/31/25 Previous Rx's ?Medication ?Instructions ?Recorded cetirizine 10 mg tablet (Allergy 10 mg PO BEDTIME PRN allergy 12/17/22 Relief (cetirizine)) symptoms #30 tabs metformin 500 mg tablet 1,000 mg (2 x 500 mg) PO BID #180 04/17/24 tabs Glucose Meter #1 ea 05/09/24 Glucose Test Strips #100 strips 05/09/24 lancets #100 ea 05/09/24 promethazine 12.5 mg tablet 12.5 mg PO QID PRN nausea and 11/20/24 vomiting #30 tabs sumatriptan succinate 25 mg tablet 25 mg PO .COMPLEX #10 tabs 01/17/25 baclofen 10 mg tablet 10 mg PO TID muscle spasm 10 days 01/31/25 #30 tabs lidocaine 5 % topical ointment 1 applic topical TID PRN pain 7 01/31/25 days #30 grams Allergies Allergy/AdvReac Type Severity Reaction Status Date / Time ondansetron AdvReac Mild Nausea Verified 01/31/25 13:06 Review of Systems <Lashay Jameson PA-C - Last Filed: 01/30/25 15:10> Constitutional Constitutional: Reports chills, Denies fatigue, Denies fever(s), Denies frequent falls, Denies lethargy and Denies weakness Eyes Eyes: Denies change in vision, Denies eye discharge, Denies irritation and Denies loss of vision ENT Ears, Nose, Mouth, and Throat: Denies change in voice, Denies dizziness, Denies neck pain, Denies sore throat and Denies throat swelling Cardiovascular Cardiovascular: Denies chest pain, Denies irregular heart rhythm, Denies lightheadedness, Denies palpitations, Denies dyspnea, Denies dyspnea on exertion and Denies orthopnea Respiratory Respiratory: Denies cough, Denies dyspnea, Denies dyspnea on exertion and Denies wheezing Gastrointestinal Gastrointestinal: Denies abdominal pain, Denies change in bowel habits, Denies diarrhea, Reports nausea and Reports vomiting Comments: Left-sided flank pain Musculoskeletal Musculoskeletal: Reports back pain, Denies neck pain and Denies numbness Integumentary/Breasts Skin/Breast: Denies pruritus, Denies erythema, Denies rash and Denies wounds Neurologic Neurologic: Denies behavioral changes, Denies confusion, Denies dizziness, Denies frequent falls, Denies loss of vision, Denies numbness and Denies weakness Psychiatric Psychiatric: Denies anxiety, Denies behavioral changes, Denies confusion, Denies depression, Denies homicidal ideation and Denies suicidal ideation Endocrine Endocrine: Denies fatigue, Denies flushing and Denies palpitations Hematologic/Lymphatic Hematologic/Lymphatic: Denies easy bruising Allergic/Immunologic Allergic/Immunologic: Denies urticaria, Denies throat swelling and Denies wheezing Patient History <Lashay Jameson PA-C - Last Filed: 01/30/25 15:10> Medical History Attention deficit hyperactivity disorder (ADHD), predominantly 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) Gastroesophageal reflux disease Anxiety Family History Grandmother Thyroid disorder Mother Panic attacks Methamphetamine abuse Social History household members: family Smoking Status: Unknown if ever smoked alcohol intake: never tobacco type: vaping alcohol intake frequency: 0-2 drinks per day Exam <Lashay Jameson PA-C - Last Filed: 01/30/25 15:10> Narrative Exam Narrative: Const General:?cooperative, healthy appearing and comfortable [facility] Head:?normal to inspection Ears:?hearing grossly normal bilaterally Nose:?external nose normal Face and sinus:?normal facial exam and sinuses nontender Mouth:?oral mucosae normal Throat:?posterior oropharynx normal Eyes General:?appearance normal, both eyes and all related structures Neck Neck:?normal visual inspection and no lymphadenopathy noted Resp Effort & Inspection:?normal respiratory effort Auscultation:?clear to auscultation bilaterally Cardio Rate:?regular rate Rhythm:?regular rhythm GI Abdomen is soft, nondistended, nontender to palpation. There is left-sided CVA tenderness. Musculoskeletal No midline tenderness to palpation. Neuro General:?patient alert, patient awake and patient oriented x3 Initial Vital Signs Initial Vital Signs: Vital Signs Temperature 97.6 F 01/30/25 12:37 Pulse Rate 109 H 01/30/25 12:37 Respiratory Rate 16 01/30/25 12:37 Blood Pressure 121/66 01/30/25 12:37 Pulse Oximetry 97 01/30/25 12:37 Oxygen Delivery Method Room Air 01/30/25 12:37 <Patricio Eugene MD - Last Filed: 02/06/25 07:10> Initial Vital Signs Initial Vital Signs: Vital Signs Temperature 97.6 F 01/30/25 12:37 Pulse Rate 109 H 01/30/25 12:37 Respiratory Rate 16 01/30/25 12:37 Blood Pressure 121/66 01/30/25 12:37 Pulse Oximetry 97 01/30/25 12:37 Oxygen Delivery Method Room Air 01/30/25 12:37 Course <Lashay Jameson PA-C - Last Filed: 01/30/25 15:10> Orders Ordered: Discontinued Medications Cyclobenzaprine HCl (Cyclobenzaprine 10 Mg Tablet) 10 mg PO NOW ONE Stop: 01/30/25 14:11 Last Admin: 01/30/25 14:14 Dose: 10 mg Documented By: CIRO Ketorolac Tromethamine (Ketorolac 30 Mg/Ml Vial) 15 mg IV NOW ONE Stop: 01/30/25 13:00 Last Admin: 01/30/25 13:37 Dose: 15 mg Documented By: CIRO Promethazine HCl (Promethazine 25 Mg Tablet) 12.5 mg PO NOW ONE Stop: 01/30/25 13:00 Last Admin: 01/30/25 13:45 Dose: 12.5 mg Documented By: CIRO Vital Signs Vital signs: Vital Signs - 8 hr 01/30/25 12:37 Temperature 97.6 F Pulse Rate 109 H Respiratory Rate 16 Blood Pressure 121/66 Pulse Oximetry 97 Oxygen Delivery Method Room Air <Patricio Eugene MD - Last Filed: 02/06/25 07:10> Orders Ordered: Discontinued Medications Cyclobenzaprine HCl (Cyclobenzaprine 10 Mg Tablet) 10 mg PO NOW ONE Stop: 01/30/25 14:11 Last Admin: 01/30/25 14:14 Dose: 10 mg Documented By: CIRO Ketorolac Tromethamine (Ketorolac 30 Mg/Ml Vial) 15 mg IV NOW ONE Stop: 01/30/25 13:00 Last Admin: 01/30/25 13:37 Dose: 15 mg Documented By: CIRO Promethazine HCl (Promethazine 25 Mg Tablet) 12.5 mg PO NOW ONE Stop: 01/30/25 13:00 Last Admin: 01/30/25 13:45 Dose: 12.5 mg Documented By: CIRO Vital Signs Vital signs: Vital Signs - 8 hr 01/30/25 12:37 Temperature 97.6 F Pulse Rate 109 H Respiratory Rate 16 Blood Pressure 121/66 Pulse Oximetry 97 Oxygen Delivery Method Room Air MDM - Back Pain/Injury <Lashay Jameson PA-C - Last Filed: 01/30/25 15:10> Lab Data 01/30/25 13:14 01/30/25 13:14 Labs: Lab Results 01/30/25 Range/Units 13:14 WBC 8.2 (4.5-11.0) X10^3/uL RBC 4.41 (4.0-5.2) X10^6/uL Hgb 13.2 (12.0-16.0) g/dL Hct 38.4 (36-46) % MCV 87.1 (80-100) fL MCH 30.0 (26-34) PG MCHC 34.4 (30-36) % RDW 13.1 (11.6-14.8) % Plt Count 327 (150-400) X10^3/uL Neut % (Auto) 57.1 (50-75) % Lymph % (Auto) 33.8 (25-40) % [place] % (Auto) 6.3 (3-14) % Eos % (Auto) 1.7 L (2-4) % Baso % (Auto) 1.1 (0-2) % Neut # (Auto) 4700 (6740-6096) /uL Lymph # (Auto) 2800 (8298-0153) /uL [place] # (Auto) 500 (0-900) /uL Eos # (Auto) 100 (0-450) /uL Baso # (Auto) 100 (0-100) /uL PT 11.4 (9.4-12.5) SECONDS INR 1.0 (0.9-1.3) APTT 35 (25.1-36.5) SECONDS Sodium 140 (137-145) mmol/L Potassium 3.9 (3.4-5.1) mmol/L Chloride 106 (98-107) mmol/L Carbon Dioxide 24 (22-32) mmol/L BUN 8 (7-17) mg/dL Creatinine 0.59 (0.52-1.04) mg/dL Estimated GFR > 60 (>60) mL/min BUN/Creatinine Ratio 13.6 (6-22) Glucose 102 H (70-99) mg/dL Calcium 9.3 (8.4-10.2) mg/dL Total Bilirubin 0.6 (0.2-1.3) mg/dL AST 25 (14-36) IU/L ALT 13 (<35) IU/L Alkaline Phosphatase 66 (38-126) U/L Total Protein 7.8 (6.3-8.2) g/dL Albumin 4.8 (3.5-5.0) g/dL Globulin 3.0 (1.7-4.1) g/dL Albumin/Globulin Ratio 1.6 (1.0-2.8) Lipase 85 (23-300) U/L Point of Care Testing Test Results Negative Urine Dip Bedside Urine Glucose Negative Bedside Urine Bilirubin - Negative Bedside Urine Ketone - Negative Urine Specific [place] 1.015 Bedside Urine Occult Blood - Negative Bedside Urine pH 6.5 Bedside Urine Protein - Negative Bedside Urine Urobilinogen - Negative Bedside Urine Nitrite - Negative Bedside Urine Leukocytes - Negative Esterase MDM Narrative Medical decision making narrative: 19-year-old female with past medical history migraines, PCOS, anxiety presents to the ED with 2 days of left-sided flank pain. Concern for UTI versus pyelonephritis versus urolithiasis versus musculoskeletal sprain/strain versus other. Will obtain labs, CT abdomen pelvis, urine hCG, UA. Will give ketorolac, promethazine for symptoms. Will reassess. Labs within normal limits. UA was normal. Urine hCG negative. CT abdomen pelvis without acute findings. Patient was given Flexeril with good relief. Patient's symptoms most consistent with a musculoskeletal sprain/strain of the back. Prescribed muscle relaxant. Recommend taking ibuprofen along with it. Recommend follow-up with PCP as soon as possible. ED return precautions were discussed with patient. Patient verbalized understanding. Medical records reviewed: Yes <Patricio Eugene MD - Last Filed: 02/06/25 07:10> Lab Data Labs: Lab Results 01/30/25 Range/Units 13:14 WBC 8.2 (4.5-11.0) X10^3/uL RBC 4.41 (4.0-5.2) X10^6/uL Hgb 13.2 (12.0-16.0) g/dL Hct 38.4 (36-46) % MCV 87.1 (80-100) fL MCH 30.0 (26-34) PG MCHC 34.4 (30-36) % RDW 13.1 (11.6-14.8) % Plt Count 327 (150-400) X10^3/uL Neut % (Auto) 57.1 (50-75) % Lymph % (Auto) 33.8 (25-40) % [place] % (Auto) 6.3 (3-14) % Eos % (Auto) 1.7 L (2-4) % Baso % (Auto) 1.1 (0-2) % Neut # (Auto) 4700 (9971-9474) /uL Lymph # (Auto) 2800 (9836-8068) /uL [place] # (Auto) 500 (0-900) /uL Eos # (Auto) 100 (0-450) /uL Baso # (Auto) 100 (0-100) /uL PT 11.4 (9.4-12.5) SECONDS INR 1.0 (0.9-1.3) APTT 35 (25.1-36.5) SECONDS Sodium 140 (137-145) mmol/L Potassium 3.9 (3.4-5.1) mmol/L Chloride 106 (98-107) mmol/L Carbon Dioxide 24 (22-32) mmol/L BUN 8 (7-17) mg/dL Creatinine 0.59 (0.52-1.04) mg/dL Estimated GFR > 60 (>60) mL/min BUN/Creatinine Ratio 13.6 (6-22) Glucose 102 H (70-99) mg/dL Calcium 9.3 (8.4-10.2) mg/dL Total Bilirubin 0.6 (0.2-1.3) mg/dL AST 25 (14-36) IU/L ALT 13 (<35) IU/L Alkaline Phosphatase 66 (38-126) U/L Total Protein 7.8 (6.3-8.2) g/dL Albumin 4.8 (3.5-5.0) g/dL Globulin 3.0 (1.7-4.1) g/dL Albumin/Globulin Ratio 1.6 (1.0-2.8) Lipase 85 (23-300) U/L Point of Care Testing Test Results Negative Urine Dip Bedside Urine Glucose Negative Bedside Urine Bilirubin - Negative Bedside Urine Ketone - Negative Urine Specific [place] 1.015 Bedside Urine Occult Blood - Negative Bedside Urine pH 6.5 Bedside Urine Protein - Negative Bedside Urine Urobilinogen - Negative Bedside Urine Nitrite - Negative Bedside Urine Leukocytes - Negative Esterase Discharge Plan Departure Patient Disposition: Home Clinical Impression: Back pain Qualifiers: Back pain location: thoracic back pain Chronicity: acute Back pain laterality: left Qualified Code(s): M54.6 - Pain in thoracic spine Instructions: DI for Back Strain or Sprain Activity Restrictions/Additional Instructions: You were evaluated in the ED today for left-sided back pain. Your labs, urine, CT scan were normal. Your back pain improved with ketorolac, Flexeril, is likely a musculoskeletal sprain/strain of the back. You are being prescribed Flexeril to continue taking at home along with ibuprofen. You may take 800 mg of ibuprofen every 8 hours with food for pain. You may apply heat, ice. Please follow-up with your PCP as soon as possible. Return to the ED if you have worsening symptoms, numbness, tingling, weakness, urinary difficulties. Prescriptions: No Action cetirizine [Allergy Relief (cetirizine)] 10 mg tablet 10 mg PO BEDTIME PRN (Reason: allergy symptoms) Qty: 30 3RF promethazine 12.5 mg tablet 12.5 mg PO QID PRN (Reason: nausea and vomiting) Qty: 30 2RF sumatriptan succinate 25 mg tablet 25 mg PO .COMPLEX Qty: 10 2RF Rx Instructions: take one tab, can repeat in 2hrs if needed. Max 200mg/24hrs methocarbamol 500 mg tablet 500 mg PO 3XD baclofen 10 mg tablet 10 mg PO TID 10 Days Qty: 30 0RF lidocaine 5 % ointment 1 applic topical TID PRN (Reason: pain) 7 Days Qty: 30 0RF (DME) Glucose Test Strips See Rx Instructions .ROUTE .MEDSUPPLY Qty: 100 0RF Rx Instructions: to test glucose daily As directed as needed for hypoglycemic episodes metformin 500 mg tablet 1,000 mg PO BID Qty: 180 0RF (DME) lancets Misc See Rx Instructions .MEDSUPPLY Qty: 100 0RF Rx Instructions: to test blood glucose daily As directed as needed (DME) Glucose Meter See Rx Instructions .ROUTE .MEDSUPPLY Qty: 1 0RF Rx Instructions: to test blood glucose daily As directed as needed multivitamin Tablet 1 tab PO DAILY Referrals: Grace Lyle MD [Primary Care Provider, Family Practice] Stand Alone Forms: Patient Portal/API, Work Release Note ED Sign-out <Patricio Eugene MD - Last Filed: 02/06/25 07:10> [facility] Att[facility]: I was immediately available in the department for consultation. ?This documentation has been reviewed and I agree with assessment and plan. Supervised by Patricio Eugene MD
--- NOTE | 2025-01-30 13:09 | DI.CT.S_ITS ---
PROCEDURE: CT ABDOMEN PELVIS W CON INDICATIONS: L flank pain TECHNIQUE: After the administration of intravenous contrast, axial sections acquired from the lung bases to the pubic symphysis. Coronal and sagittal reformats were performed. For radiation dose reduction, the following was used: automated exposure control, adjustment of mA and/or kV according to patient size. COMPARISON: [facility], CT, CT ABDOMEN PELVIS W CON, 12/18/2024, 2:43. FINDINGS: Image quality: Diagnostic. Lower Chest: No significant findings. ABDOMEN: Liver: No solid mass. Gallbladder: No radiopaque gallstones or wall thickening. Biliary ducts: No biliary dilation. Pancreas: No ductal dilation. Spleen: Size is within normal limits. Adrenal Glands: No adrenal nodules. Kidneys and Ureters: No hydronephrosis. No solid mass. No complex renal cystic lesion which requires follow up. Stomach and Bowel: Normal colonic caliber, without significant wall thickening. The appendix is normal. Peritoneum: No abnormal intraperitoneal fluid. No free air. Ventral Wall: No significant ventral hernia. Abdominal Nodes: No retroperitoneal or mesenteric adenopathy by size criteria. Vessels: Aorta and inferior vena cava are normal in size. PELVIS: Pelvic Organs: Unremarkable. An IUD remains in place. Bladder: No bladder wall thickening, accounting for underdistention. Pelvic Nodes: No enlarged lymph nodes. Miscellaneous: No inguinal hernias are seen. Bones: No aggressive osseous abnormality. IMPRESSION: No significant or acute abnormality of the abdomen or pelvis with no significant change from prior imaging. Dictated by: Inna Fleming M.D. on 01/30/2025 at 13:29 Approved by: Inna Fleming M.D. on 01/30/2025 at 13:36
[2025-01-30] MEDS: KETOROLAC 30 MG/ML VIAL 15 MG IV (13:37)
[2025-01-30 13:39] LABS: Add Manual Diff / Slide Review NO; Basophils Absolute Auto 100 /uL (0-100); Basophils Percent Auto 1.1 % (0-2); Eosinophils Absolute Auto 100 /uL (0-450); Eosinophils Percent Auto 1.7 % (2-4); Hematocrit 38.4 % (36-46); Hemoglobin 13.2 g/dL (12.0-16.0); Lymphocytes Absolute Auto 2800 /uL (1100-4500); Lymphocytes Percent Auto 33.8 % (25-40); Mean Corpuscular HGB Conc 34.4 % (30-36); Mean Corpuscular Volume 87.1 fL (80-100); Monocytes Absolute Auto 500 /uL (0-900); Monocytes Percent Auto 6.3 % (3-14); Neutrophils Absolute Auto 4700 /uL (1500-7000); Neutrophils Percent Auto 57.1 % (50-75); Platelet Count 327 X10^3/uL (150-400); Red Blood Cell Count 4.41 X10^6/uL (4.0-5.2); Red Cell Distribution Width 13.1 % (11.6-14.8); White Blood Cell Count 8.2 X10^3/uL (4.5-11.0)
[2025-01-30] MEDS: PROMETHAZINE 25 MG TABLET 12.5 MG PO (13:45)
[2025-01-30 13:47] LABS: Prothrombin Time 11.4 SECONDS (9.4-12.5)
[2025-01-30 13:55] LABS: Alanine Aminotransferase 13 IU/L (<35); Albumin 4.8 g/dL (3.5-5.0); Albumin Globulin Ratio 1.6 (1.0-2.8); Alkaline Phosphatase 66 U/L (38-126); Aspartate Aminotransferase 25 IU/L (14-36); BUN Creatinine Ratio 13.6 (6-22); Bilirubin Total 0.6 mg/dL (0.2-1.3); Blood Urea Nitrogen 8 mg/dL (7-17); Calcium 9.3 mg/dL (8.4-10.2); Carbon Dioxide 24 mmol/L (22-32); Chloride 106 mmol/L (98-107); Estimated Glomerular Filt Rate > 60 mL/min (>60); Glucose 102 mg/dL (70-99); HEMOLYSIS < 15 (0-50); Lipase 85 U/L (23-300); Potassium 3.9 mmol/L (3.4-5.1); Sodium 140 mmol/L (137-145); Total Protein 7.8 g/dL (6.3-8.2)
[2025-01-30 13:59] LABS: PTT Partial Thromboplastin Tim 35 SECONDS (25.1-36.5)
[2025-01-30] MEDS: CYCLOBENZAPRINE 10 MG TABLET PO (14:14)
[2025-01-30 15:13] VITALS: BP 119/64; PULSE 86; RESP 16; O2SAT 98
== END 2025-01-30 15:15 | disposition home or self-care (01) ==
PROVIDERS: Emergency Provider Student in an Organized Health Care Education/Training Program; Family Provider Family Medicine; PCP Family Medicine
DX: M54.6 Pain in thoracic spine (principal); R11.2 Nausea with vomiting, unspecified
CPT/HCPCS: 36415; 74177; 80053; 81003; 81025; 83690; 85025; 85610; 85730; 96374; 99284; J1885; Q9967

== ENCOUNTER 2025-03-08 07:43 | Emergency (ER) | payer SELFPAY ==
[2025-03-08] VITALS (13 sets, daily range): BP systolic 100–138; BP diastolic 62–80; PULSE 66–105; RESP 18; TEMP 36.8; O2SAT 96–99; BMI 37.5
[2025-03-08] MEDS: SODIUM CHLORIDE 0.9% 1,000 ML 1000 ML IV (08:35)
[2025-03-08] MEDS: METOCLOPRAMIDE 10 MG/2 ML INJ IV (08:35)
--- NOTE | 2025-03-08 08:41 | ED.GENADULT ---
HPI - General Adult General Chief complaint: Abdominal Pain Stated complaint: N/V not feeling good x 2 weeks Time Seen by Provider: 03/08/25 08:19 Source: patient Mode of arrival: Ambulatory History of Present Illness HPI narrative: Patient here for complaints of nausea vomiting diarrhea, no black or bloody stools. Also somnolence found tired fatigued and hard time concentrating. Denies any new stressors in life. No chest pain no abdominal pain. Patient unable see primary care due to losing her insurance. Denies any history of Heart attack strokes diabetes or thyroid disease. Related Data Home Medications ?Medication ?Instructions ?Recorded ?Confirmed multivitamin 1 tab PO DAILY 07/03/21 02/13/25 baclofen 10 mg tablet 10 mg PO 3XD muscle spasm 02/13/25 02/13/25 cyclobenzaprine 10 mg tablet 10 mg PO 3XD PRN muscle spasm 02/13/25 02/13/25 lidocaine 5 % topical ointment topical 3XD PRN pain 02/13/25 02/13/25 Previous Rx's ?Medication ?Instructions ?Recorded cetirizine 10 mg tablet (Allergy 10 mg PO BEDTIME PRN allergy 12/17/22 Relief (cetirizine)) symptoms #30 tabs metformin 500 mg tablet 1,000 mg (2 x 500 mg) PO BID #180 04/17/24 tabs Glucose Meter #1 ea 05/09/24 Glucose Test Strips #100 strips 05/09/24 lancets #100 ea 05/09/24 promethazine 12.5 mg tablet 12.5 mg PO QID PRN nausea and 11/20/24 vomiting #30 tabs sumatriptan succinate 25 mg tablet 25 mg PO .COMPLEX #10 tabs 01/17/25 metoclopramide HCl 10 mg tablet 10 mg PO Q6H PRN nausea and 03/08/25 (Reglan) vomiting #14 tabs Allergies Allergy/AdvReac Type Severity Reaction Status Date / Time ibuprofen AdvReac Mild Headache Verified 03/08/25 08:03 ondansetron AdvReac Mild Nausea Verified 03/08/25 08:03 Review of Systems Review of Systems Narrative: GENERAL: Negative chills, positive fatigue, malaise, negative fever, sweats. HEENT: Negative sinus pain, ear pain, sore throat RESPIRATORY: Negative dyspnea, cough CARDIOVASCULAR: Negative chest pain, palpitations GASTROINTESTINAL: Positive diarrhea and vomiting, nausea, negative bloody stools or abdominal pain : Negative dysuria, frequency, hematuria MUSCULOSKELETAL: Negative muscle or bony pain SKIN: Negative rash, skin lesions NEUROLOGIC: Negative weakness, numbness, positive dizziness ROS Unobtainable: All systems reviewed & are unremarkable except as noted in HPI and below Patient History Medical History Attention deficit hyperactivity disorder (ADHD), predominantly 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) Gastroesophageal reflux disease Anxiety Family History Grandmother Thyroid disorder Mother Panic attacks Methamphetamine abuse Social History household members: family alcohol intake: never tobacco type: vaping alcohol intake frequency: 0-2 drinks per day Exam Narrative Exam Narrative: GENERAL: in no distress, not toxic not dyspneic HEAD: Normocephalic. EYES: Pupils equal round ENT: Mucous membranes moist. NECK: Trachea midline. CARDIOVASCULAR: Regular rate and rhythm RESPIRATORY: Clear to auscultation. Breath sounds equal bilaterally. No wheezes, rales, or rhonchi. GASTROINTESTINAL: Abdomen soft, non-tender abdomen is soft nontender no peritoneal signs no guarding no rebound. No CVA tenderness. Bowel sounds are present. EXTREMITIES: No gross deformities. BACK: No flank tenderness. NEURO: AOx4. Clear speech SKIN: Warm and dry PSYCH: Not anxious, is cooperative Initial Vital Signs Initial Vital Signs: Vital Signs Blood Pressure 138/80 03/08/25 07:50 Course Orders Ordered: ED Orders 03/08/25 08:30 Complete Blood Count AUTO DIFF Stat Comprehensive Metabolic Panel Stat Lipase Stat Respiratory Panel (Film Array) Stat TSH [Thyroid Stimulating Hormone] Stat 03/08/25 09:26 Urinalysis and Microscopic Stat Urine Culture Stat Discontinued Medications Sodium Chloride (Normal Saline 0.9%) 1,000 mls @ 1,000 mls/hr IV BOLUS ONE Stop: 03/08/25 09:19 Last Infusion: 03/08/25 10:19 Dose: Infused Documented By: Admin: 03/08/25 08:35 Dose: 1,000 mls/hr Documented By: IVIS Metoclopramide HCl (Metoclopramide 10 Mg/2 Ml Inj) 10 mg IV NOW ONE Stop: 03/08/25 08:23 Last Admin: 03/08/25 08:35 Dose: 10 mg Documented By: IVIS Vital Signs Vital signs: Vital Signs - 8 hr 03/08/25 07:50 03/08/25 07:51 03/08/25 08:00 Temperature Pulse Rate 98 H 89 Respiratory Rate Blood Pressure 138/80 Pulse Oximetry 97 98 Oxygen Delivery Method 03/08/25 08:03 03/08/25 08:30 03/08/25 09:00 Temperature 98.3 F Pulse Rate 105 H 90 69 Respiratory Rate 18 Blood Pressure 138/80 Pulse Oximetry 97 98 97 Oxygen Delivery Method Room Air 03/08/25 09:25 03/08/25 09:25 03/08/25 09:30 Temperature Pulse Rate 92 H 73 Respiratory Rate Blood Pressure 118/69 Pulse Oximetry 96 98 Oxygen Delivery Method 03/08/25 09:30 03/08/25 10:00 03/08/25 10:01 Temperature Pulse Rate 81 78 Respiratory Rate Blood Pressure 123/62 Pulse Oximetry 98 98 Oxygen Delivery Method 03/08/25 10:01 03/08/25 10:30 03/08/25 10:30 Temperature Pulse Rate 68 Respiratory Rate Blood Pressure 100/66 110/62 Pulse Oximetry 99 Oxygen Delivery Method 03/08/25 10:30 03/08/25 10:30 03/08/25 11:00 Temperature Pulse Rate 66 Respiratory Rate Blood Pressure 110/62 110/62 Pulse Oximetry 98 Oxygen Delivery Method 03/08/25 11:00 03/08/25 11:30 03/08/25 11:30 Temperature Pulse Rate 83 Respiratory Rate Blood Pressure 101/69 108/64 Pulse Oximetry 98 Oxygen Delivery Method Medical Decision Making Lab Data 03/08/25 08:30 03/08/25 08:30 Labs: Lab Results 03/08/25 03/08/25 Range/Units 08:30 09:26 WBC 7.5 (4.5-11.0) X10^3/uL RBC 4.65 (4.0-5.2) X10^6/uL Hgb 14.0 (12.0-16.0) g/dL Hct 40.6 (36-46) % MCV 87.3 (80-100) fL MCH 30.1 (26-34) PG MCHC 34.4 (30-36) % RDW 12.9 (11.6-14.8) % Plt Count 296 (150-400) X10^3/uL Neut % (Auto) 63.8 (50-75) % Lymph % (Auto) 26.8 (25-40) % [place] % (Auto) 6.9 (3-14) % Eos % (Auto) 1.4 L (2-4) % Baso % (Auto) 1.1 (0-2) % Neut # (Auto) 4800 (2507-3306) /uL Lymph # (Auto) 2000 (7014-5169) /uL [place] # (Auto) 500 (0-900) /uL Eos # (Auto) 100 (0-450) /uL Baso # (Auto) 100 (0-100) /uL Sodium 139 (137-145) mmol/L Potassium 4.4 (3.4-5.1) mmol/L Chloride 108 H (98-107) mmol/L Carbon Dioxide 24 (22-32) mmol/L BUN 12 (7-17) mg/dL Creatinine 0.60 (0.52-1.04) mg/dL Estimated GFR > 60 (>60) mL/min BUN/Creatinine Ratio 20.0 (6-22) Glucose 102 H (70-99) mg/dL Calcium 9.4 (8.4-10.2) mg/dL Total Bilirubin 0.7 (0.2-1.3) mg/dL AST 22 (14-36) IU/L ALT 14 (<35) IU/L Alkaline Phosphatase 63 (38-126) U/L Total Protein 8.1 (6.3-8.2) g/dL Albumin 4.8 (3.5-5.0) g/dL Globulin 3.3 (1.7-4.1) g/dL Albumin/Globulin Ratio 1.5 (1.0-2.8) Lipase 86 (23-300) U/L TSH 1.82 (0.47-4.68) uIU/mL Urine Color Yellow Urine Appearance Clear Urine pH 6.0 (4.5-8.0) Ur Specific [place] 1.020 (1.000-1.035) Urine Protein Negative (Negative) Urine Glucose (UA) Negative (Negative) g/dL Urine Ketones Negative (NEGATIVE) Urine Occult Blood Trace-intact (Negative) Urine Nitrate Negative (Negative) Urine Bilirubin Negative (NEGATIVE) Urine Urobilinogen 0.2 (0.2) E.U./dL Ur Leukocyte Esterase Negative (NEGATIVE) Urine RBC 0-1/hpf D (0-5/HPF) Urine WBC 0-1/hpf (0-5/HPF) Ur Squamous Epith Cells 1-5 /hpf (0-5/HPF) Urine Bacteria Moderate (10-30) H (None) Ur Culture Indicated? Specimen cultured Vol Urine Centrifuged 10ml (spun) Chlamy pneumoniae PCR Not detected (Not Detect) Adenovirus (PCR) Not detected (Not Detect) B. pertussis DNA (PCR) Not detected (Not Detect) B.parapertussis DNA PCR Not detected (Not Detecte) Coronavirus OC43 (PCR) Not detected (Not Detect) Coronavirus HKU1 (PCR) Not detected (Not Detect) Coronavirus 229E (PCR) Not detected (Not Detect) SARS-CoV-2 (PCR) Not detected (Not Detecte) Coronavirus NL63 (PCR) Not detected (Not Detect) Human Metapneumovir PCR Not detected (Not Detect) Influenza Type A (PCR) Not detected (Not Detect) Influenza Type B (PCR) Not detected (Not Detect) M. pneumoniae (PCR) Not detected (Not Detect) Parainfluenza 1 (PCR) Not detected (Not Detect) Parainfluenza 2 (PCR) Not detected (Not Detect) Parainfluenza 3 (PCR) Not detected (Not Detect) Parainfluenza 4 (PCR) Not detected (Not Detect) RSV (PCR) Not detected (Not Detect) Entero/Rhino (PCR) Not detected (Not Detect) [facility] Narrative Medical decision making narrative: Patient here for complaints of nausea vomiting diarrhea, no black or bloody stools. Also somnolence found tired fatigued and hard time concentrating. Denies any new stressors in life. No chest pain no abdominal pain. Patient unable see primary care due to losing her insurance. Denies any history of Heart attack strokes diabetes or thyroid disease. After history and exam, CBC CMP urinalysis respiratory panel TSH Reglan normal saline MDM Medical records reviewed: ER visit here January 30, 2025 for back pain. Differential considered: Includes but not limited to hypothyroidism dehydration new onset diabetes UTI Lab Test results independently reviewed as above. Pertinent findings: WBC 7.5 hemoglobin 14 sodium 139 potassium 4.4 BUN 12 creatinine 0.6 glucose 102 calcium 9.4 lipase 86 AST 22 ALT 14 TSH 1.82 urinalysis negative ketones negative nitrate negative leukocyte esterase, respiratory panel negative Imaging studies independently reviewed: No imaging indicated at this time laboratory studies are reassuring Consultations: None indicated at this time. Re-evaluations: 11:21 a.m.. Patient feeling much better. No nausea or diarrhea here. Reviewed results with her. They are reassuring. Patient does need to follow up with primary care. Referral phone number will be provided. Return precautions reviewed. She desires discharge home. Work note provided. Prescription for Reglan will be provided. Discussion: Appropriate for discharge home. Exam is reassuring laboratory studies are reassuring. No imaging indicated at this time. No EKG indicated this time. Return precautions reviewed. She desires discharge home. Patient just had CT abdomen pelvis January 30, 2025 and another 1 in December 18, 2024. Glucose and bicarb are reassuring. No DKA Diagnosis: Nausea vomiting diarrhea dizziness Discharge Plan Departure Patient Disposition: Home Clinical Impression: Gastroenteritis, Dizziness Instructions: DI for Diarrhea and Traveler's Diarrhea -- Adult, Gastroenteritis Diet, Nausea and Vomiting-Adult Activity Restrictions/Additional Instructions: Your exam and laboratory studies are reassuring. Please see family doctor or call provided clinic if he needed family doctor. Prescription for nausea medication has been sent to your pharmacy to continue. Return if worse if any questions or concerns. Work note has been provided for you as well. Please call provided primary care provider phone number to obtain family doctor, Prescriptions: New metoclopramide HCl [Reglan] 10 mg tablet 10 mg PO Q6H PRN (Reason: nausea and vomiting) Qty: 14 0RF No Action cetirizine [Allergy Relief (cetirizine)] 10 mg tablet 10 mg PO BEDTIME PRN (Reason: allergy symptoms) Qty: 30 3RF promethazine 12.5 mg tablet 12.5 mg PO QID PRN (Reason: nausea and vomiting) Qty: 30 2RF sumatriptan succinate 25 mg tablet 25 mg PO .COMPLEX Qty: 10 2RF Rx Instructions: take one tab, can repeat in 2hrs if needed. Max 200mg/24hrs cyclobenzaprine 10 mg tablet 10 mg PO 3XD PRN (Reason: muscle spasm) baclofen 10 mg tablet 10 mg PO 3XD lidocaine 5 % ointment topical 3XD PRN (Reason: pain) (DME) Glucose Test Strips See Rx Instructions .ROUTE .MEDSUPPLY Qty: 100 0RF Rx Instructions: to test glucose daily As directed as needed for hypoglycemic episodes metformin 500 mg tablet 1,000 mg PO BID Qty: 180 0RF (DME) lancets Misc See Rx Instructions .MEDSUPPLY Qty: 100 0RF Rx Instructions: to test blood glucose daily As directed as needed (DME) Glucose Meter See Rx Instructions .ROUTE .MEDSUPPLY Qty: 1 0RF Rx Instructions: to test blood glucose daily As directed as needed multivitamin Tablet 1 tab PO DAILY Referrals: Grace Lyle MD [Primary Care Provider, Family Practice] Stand Alone Forms: Patient Portal/API, Work Release Note
[2025-03-08 08:49] LABS: Add Manual Diff / Slide Review NO; Hematocrit 40.6 % (36-46); Hemoglobin 14.0 g/dL (12.0-16.0); Lymphocytes Absolute Auto 2000 /uL (1100-4500); Mean Corpuscular HGB Conc 34.4 % (30-36); Mean Corpuscular Hemoglobin 30.1 PG (26-34); Mean Corpuscular Volume 87.3 fL (80-100); Platelet Count 296 X10^3/uL (150-400)
[2025-03-08 08:59] LABS: Alanine Aminotransferase 14 IU/L (<35); Albumin 4.8 g/dL (3.5-5.0); Albumin Globulin Ratio 1.5 (1.0-2.8); Alkaline Phosphatase 63 U/L (38-126); Blood Urea Nitrogen 12 mg/dL (7-17); Calcium 9.4 mg/dL (8.4-10.2); Carbon Dioxide 24 mmol/L (22-32); Chloride 108 mmol/L (98-107); Estimated Glomerular Filt Rate > 60 mL/min (>60); Globulin 3.3 g/dL (1.7-4.1); Glucose 102 mg/dL (70-99); HEMOLYSIS < 15 (0-50); Lipase 86 U/L (23-300); Potassium 4.4 mmol/L (3.4-5.1); Sodium 139 mmol/L (137-145); Total Protein 8.1 g/dL (6.3-8.2)
[2025-03-08 09:33] LABS: Appearance Urine UA CLEAR; Bilirubin Urine UA NEGATIVE (NEGATIVE); Color Urine UA YELLOW; Glucose Urine UA NEGATIVE (Negative); Ketones Urine UA NEGATIVE (NEGATIVE); Leukocyte Esterase Urine UA NEGATIVE (NEGATIVE); Nitrite Urine UA NEGATIVE (Negative); Occult Blood Urine UA TRACE-INTACT (Negative); Protein Urine UA NEGATIVE (Negative); Specific Gravity Urine UA 1.020 (1.000-1.035); Urobilinogen Urine UA 0.2 E.U./dL (0.2)
[2025-03-08 09:34] LABS: pH Urine UA 6.0 (4.5-8.0)
[2025-03-08 09:35] LABS: Coronavirus NL 63 Not Detected (Not Detect); SARS- CoV-2 Not Detected (Not Detecte)
[2025-03-08 09:36] LABS: Thyroid Stimulating Hormone 1.82 uIU/mL (0.47-4.68)
[2025-03-08 09:38] LABS: Culture Indicated Urine Specimen Cultured
== END 2025-03-08 11:32 | disposition home or self-care (01) ==
PROVIDERS: Emergency Provider Emergency Medicine; Family Provider Family Medicine; PCP Family Medicine
DX: K52.9 Noninfective gastroenteritis and colitis, unspecified (principal); R42 Dizziness and giddiness; R53.83 Other fatigue
CPT/HCPCS: 36415; 80053; 81001; 83690; 84443; 85025; 87086; 87633; 96361; 96374; 99284; J2765

== ENCOUNTER 2025-05-10 08:40 | Emergency (ER) | payer OTHER, SELFPAY ==
[2025-05-10 08:48] VITALS: BP 133/81; PULSE 95; RESP 16; TEMP 36.2; O2SAT 99; BMI 38.3
--- NOTE | 2025-05-10 08:55 | ED.ALLEREA ---
HPI - Allergic Reaction General Chief complaint: Allergic Reaction Stated complaint: Allergic reaction, throat is closing Time Seen by Provider: 05/10/25 08:46 History of Present Illness HPI narrative: 19-year-old female presents with rash on her back that started yesterday itchy seen by walk-in clinic told to take Zyrtec Pepcid with no significant relief of her symptoms. Patient reports no new changes in her diet regimen no new pets lotions soaps detergents or supplements. Patient remote reports chest tightness and her tongue feels much more swollen but able to eat drank speak with no difficulty. Patient denies any recent foreign travel sick contacts. 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 Other than what is stated 14 point review of system is negative. Related Data Home Medications ?Medication ?Instructions ?Recorded ?Confirmed multivitamin 1 tab PO DAILY 07/03/21 05/09/25 baclofen 10 mg tablet 10 mg PO 3XD muscle spasm 02/13/25 05/09/25 lidocaine 5 % topical ointment topical 3XD PRN pain 02/13/25 05/09/25 Previous Rx's ?Medication ?Instructions ?Recorded Glucose Meter #1 ea 05/09/24 Glucose Test Strips #100 strips 05/09/24 lancets #100 ea 05/09/24 promethazine 12.5 mg tablet 12.5 mg PO QID PRN nausea and 11/20/24 vomiting #30 tabs sumatriptan succinate 25 mg tablet 25 mg PO .COMPLEX #10 tabs 01/17/25 prednisone 20 mg tablet 20 mg PO BID #10 tabs 05/10/25 Allergies Allergy/AdvReac Type Severity Reaction Status Date / Time cyclobenzaprine AdvReac Intermediate Hives Verified 05/09/25 07:11 ibuprofen AdvReac Mild Headache Verified 05/09/25 07:11 ondansetron AdvReac Mild Nausea Verified 05/09/25 07:11 Review of Systems Review of Systems ROS Unobtainable: All systems reviewed & are unremarkable except as noted in HPI and below Patient History Medical History Attention deficit hyperactivity disorder (ADHD), predominantly 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 Well-developed patient, in mild distress. HEAD: Atraumatic. Normocephalic. EYES: Pupils equal round and reactive. Extraocular motions intact. No scleral icterus. No injection or drainage. ENT: Nose without bleeding, purulent drainage. Throat without erythema, tonsillar hypertrophy or exudate. Airway patent. NECK: Trachea midline. Non tender CARDIOVASCULAR: Regular rate and rhythm without murmurs, gallops, or rubs. RESPIRATORY: Clear to auscultation. Breath sounds equal bilaterally. No wheezes, rales, or rhonchi. GASTROINTESTINAL: Abdomen soft, non-tender, nondistended. EXTREMITIES: No edema or joint tenderness. BACK: Nontender without deformity or crepitance. No flank tenderness. NEURO: AOx3. SKIN: No rash or erythema of visible areas but small white pimple like spots on the middle to lower back bilaterally. Initial Vital Signs Initial Vital Signs: Vital Signs Temperature 97.1 F L 05/10/25 08:48 Pulse Rate 95 H 05/10/25 08:48 Respiratory Rate 16 05/10/25 08:48 Blood Pressure 133/81 05/10/25 08:48 Pulse Oximetry 99 05/10/25 08:48 Oxygen Delivery Method Room Air 05/10/25 08:48 Course Vital Signs Vital signs: Vital Signs - 8 hr 05/10/25 08:48 Temperature 97.1 F L Pulse Rate 95 H Respiratory Rate 16 Blood Pressure 133/81 Pulse Oximetry 99 Oxygen Delivery Method Room Air MDM - Allergic Reaction MDM Narrative Medical decision making narrative: Vital signs nurse triage note medication list previous ER visits in all imaging studies reviewed. Differential diagnosis includes allergic reaction, contact dermatitis. Patient given Benadryl and prednisone here and will be discharged on prednisone 5 days. Discharge Plan Departure Patient Disposition: Home Clinical Impression: Contact dermatitis Qualifiers: Contact dermatitis type: irritant Contact dermatitis trigger: unspecified trigger Qualified Code(s): L24.9 - Irritant contact dermatitis, unspecified cause Instructions: DI for Contact Dermatitis Activity Restrictions/Additional Instructions: Return with new or worsening symptoms. Take your medicines as directed. Follow up PCP in 1-2 weeks if no improvement in symptoms. Also take Benadryl as needed for itch and rash. Prescriptions: New prednisone 20 mg tablet 20 mg PO BID Qty: 10 0RF No Action promethazine 12.5 mg tablet 12.5 mg PO QID PRN (Reason: nausea and vomiting) Qty: 30 2RF sumatriptan succinate 25 mg tablet 25 mg PO .COMPLEX Qty: 10 2RF Rx Instructions: take one tab, can repeat in 2hrs if needed. Max 200mg/24hrs baclofen 10 mg tablet 10 mg PO 3XD lidocaine 5 % ointment topical 3XD PRN (Reason: pain) (DME) Glucose Test Strips See Rx Instructions .ROUTE .MEDSUPPLY Qty: 100 0RF Rx Instructions: to test glucose daily As directed as needed for hypoglycemic episodes (DME) lancets Misc See Rx Instructions .MEDSUPPLY Qty: 100 0RF Rx Instructions: to test blood glucose daily As directed as needed (DME) Glucose Meter See Rx Instructions .ROUTE .MEDSUPPLY Qty: 1 0RF Rx Instructions: to test blood glucose daily As directed as needed multivitamin Tablet 1 tab PO DAILY Referrals: Grace Lyle MD [Primary Care Provider, Family Practice] Stand Alone Forms: Patient Portal/API
[2025-05-10] MEDS: diphenhydrAMINE 25 MG TABLET PO (09:14)
== END 2025-05-10 09:18 | disposition home or self-care (01) ==
PROVIDERS: Emergency Provider Family Medicine; Family Provider Family Medicine; PCP Family Medicine
DX: L24.9 Irritant contact dermatitis, unspecified cause (principal)
CPT/HCPCS: 99283

== ENCOUNTER → 2025-06-27 10:03 | Outpatient (CLI) | payer OTHER, SELFPAY ==
[2025-06-27 10:39] LABS: Add Manual Diff / Slide Review NO; Hematocrit 40.4 % (36-46); Hemoglobin 14.0 g/dL (12.0-16.0); Lymphocytes Absolute Auto 2200 /uL (1100-4500); Mean Corpuscular HGB Conc 34.5 % (30-36); Mean Corpuscular Hemoglobin 29.9 PG (26-34); Mean Corpuscular Volume 86.7 fL (80-100); Platelet Count 289 X10^3/uL (150-400)
[2025-06-27 10:52] LABS: Alanine Aminotransferase 15 IU/L (<35); Albumin 4.7 g/dL (3.5-5.0); Albumin Globulin Ratio 1.6 (1.0-2.8); Alkaline Phosphatase 61 U/L (38-126); Blood Urea Nitrogen 13 mg/dL (7-17); Calcium 9.3 mg/dL (8.4-10.2); Carbon Dioxide 25 mmol/L (22-32); Chloride 104 mmol/L (98-107); Estimated Glomerular Filt Rate > 60 mL/min (>60); Globulin 3.0 g/dL (1.7-4.1); Glucose 96 mg/dL (70-99); HEMOLYSIS 17 (0-50); Potassium 4.2 mmol/L (3.4-5.1); Sodium 140 mmol/L (137-145); Total Protein 7.7 g/dL (6.3-8.2)
[2025-06-27 11:05] LABS: Vitamin D 25 Hydroxy (D3) 19.8 ng/mL (30.0-100.0)
== END ==
PROVIDERS: Family Provider Family Medicine; PCP Family Medicine; Referring Provider Physician Assistant; Visit Provider Physician Assistant
DX: R10.11 Right upper quadrant pain (principal); R19.7 Diarrhea, unspecified; E55.9 Vitamin D deficiency, unspecified
CPT/HCPCS: 36415; 80053; 82306; 85025

== ENCOUNTER → 2025-06-29 06:57 | Outpatient (CLI) | payer OTHER, SELFPAY ==
--- NOTE | 2025-06-29 06:58 | DI.US.S_ITS ---
PROCEDURE: US ABDOMEN COMPLETE
== END ==
LOC: US 06:57
PROVIDERS: Family Provider Family Medicine; PCP Family Medicine; Referring Provider Physician Assistant; Visit Provider Physician Assistant
DX: R10.11 Right upper quadrant pain (principal)
CPT/HCPCS: 76700